=== PATIENT | male | born 1970 ===

== ENCOUNTER 2017-08-22 10:05 | Emergency (ER) | payer SELFPAY ==
[2017-08-22] MEDS ORDERED: Sodium Chloride 0.9% 500 ML IV ONE (11:10)
[2017-08-22] MEDS ORDERED: Dexamethasone 10 MG in Sodium Chloride 0.9% 50 ML IV ONE (11:12)
[2017-08-22] MEDS ORDERED: Sodium Chloride 0.9% 1,000 ML IV SCH (11:15)
--- NOTE | 2017-08-22 11:15 | ED PDOC ---
HPI: General Adult Time Seen by Provider: 08/22/17 11:10 Chief Complaint (Nursing): Fever Chief Complaint (Provider): sore throat History Per: Patient History/Exam Limitations: no limitations Onset/Duration Of Symptoms: Days (1) Have you had recent travel within the past 21 days to any of the following countries: [place], [place], [place] or [place]?: No Current Symptoms Are (Timing): Still Present Severity: Severe Location: generalized body/headache/sore throat Additional History Per: Patient Additional Complaint(s): pt p/w 1 day onset of generalized headache, + sore throat, lower body pain, + general weakness that worsened this morning; pt states Fever > 105 at home?; pt states no appetite, no drooling/voice changes, ? chills/sweats, no cp/sob/ palpitations, no abd pain, no n/v, no urinary/bowel changes, no fall/trauma/ sick contact, no travel; pt denied LOC, no neck pain, no light sensitivity, no rashes; no other complaints; pt is here for further eval PCP: hulbert Past Medical History Reviewed: Historical Data, Nursing Documentation, Vital Signs Vital Signs: Last Vital Signs Temp 98.1 F 08/22/17 10:11 Pulse 81 08/22/17 10:11 Resp 20 08/22/17 10:11 BP 127/67 08/22/17 10:11 Pulse Ox 98 08/22/17 11:14 - Surgical History Surgical History: Back Surgery - Family History Family History: States: Unknown Family Hx - Social History Current smoker - smoking cessation education provided: No Ex-Smoker (has not smoked in the last 12 months): No Alcohol: None Drugs: Denies - Immunization History Hx Tetanus Toxoid Vaccination: No - Home Medications Home Medications: Ambulatory Orders Medication Instructions Recorded Omeprazole 40 mg PO DAILY 01/07/17 Ranitidine HCl [Zantac] 150 mg PO BID #20 tablet 01/07/17 Naproxen 1 tab PO Q12 PRN #14 tab 03/20/17 Cyclobenzaprine [Flexeril] 10 mg PO Q8 PRN #15 tab 03/27/17 traMADol [Ultram] 50 mg PO TID PRN #15 tab 03/27/17 Amoxicillin/Clavulanate [Augmentin 1 tab PO BID #19 tab 08/22/17 875 MG-125 MG] Ibuprofen [Motrin] 600 mg PO QID PRN #30 tab 08/22/17 Ondansetron ODT [Zofran ODT] 4 mg PO TID PRN #10 odt 08/22/17 - Allergies Allergies/Adverse Reactions: Allergies Allergy/AdvReac Type Severity Reaction Status Date / Time No Known Allergies Allergy Verified 08/22/17 10:34 Review of Systems ROS Statement: Except As Marked, All Systems Reviewed And Found Negative Constitutional: Positive for: Fever, Chills, Sweats, Weakness, Malaise Eyes: Negative for: Pain, Vision Change ENT: Negative for: Ear Pain, Nose Congestion Cardiovascular: Negative for: Chest Pain Respiratory: Negative for: Cough, SOB with Exertion Gastrointestinal: Negative for: Nausea, Vomiting, Abdominal Pain Musculoskeletal: Negative for: Neck Pain Skin: Negative for: Rash Neurological: Positive for: Weakness, Headache Psych: Negative for: Anxiety, Depression, Psychosis, Suicidal ideation Physical Exam - Reviewed Nursing Documentation Reviewed: Yes Vital Signs Reviewed: Yes (elevated Temp) - Physical Exam Appears: Positive for: Well, Uncomfortable Head Exam: Positive for: ATRAUMATIC, NORMAL INSPECTION, NORMOCEPHALIC Skin: Positive for: Normal Color (cap refill ~ 1sec, no ulcerations, no petechiae, no rashes, no lesions), Dry Eye Exam: Positive for: Normal appearance, EOMI, PERRL, Other (no photophobia, sclera anicteric, no nytagmus) ENT: Positive for: TM Is/Are, Other (+ pharyngeal exudate noted, slightly enlarged tonsils, slightly erythematous; no drooling/stridor/dysphonia, uvula/ tongue are midline; intact dentitions, no fetid odor) Neck: Positive for: Normal (no step off, no nuchal rigidity, no meningeal signs , no midline tenderness), Supple. Negative for: Decreased ROM Cardiovascular/Chest: Positive for: Regular Rate, Rhythm. Negative for: Murmur Respiratory: Positive for: Normal Breath Sounds (CTA b/l, no w/r/r, no accessory muscle use noted, no tachypenia) Gastrointestinal/Abdominal: Positive for: Normal Exam, Other (well nourished male, no focal tenderness, no mcgregor's sign, no mcburney's point tenderness, no masses/rebound/guarding/rigidity; well nourished male) Back: Positive for: Normal Inspection. Negative for: L CVA Tenderness, R CVA Tenderness Extremity: Positive for: Normal ROM, Other (+ ambulatory, neurovasc intact b/l, strength 5/5 grossly intact in all limbs) Neurologic/Psych: Positive for: Alert, director index II-XII, Oriented - Laboratory Results Result Diagrams: 08/22/17 12:25 08/22/17 12:25 Interpretation Of Abn Labs: elevated WBCs - ECG O2 Sat by Pulse Oximetry: 98 - Radiology X-Ray: Read By Radiologist - Progress ED Course And Treament: HISTORY: fever, sore throat COMPARISON: No prior. TECHNIQUE: Chest PA and lateral FINDINGS: LUNGS: No active pulmonary disease. PLEURA: No significant pleural effusion identified. No pneumothorax apparent. CARDIOVASCULAR: Normal. OSSEOUS STRUCTURES: Minor multilevel degenerative spondylosis of the thoracic spine VISUALIZED UPPER ABDOMEN: Normal. OTHER FINDINGS: None. IMPRESSION: No active disease. 2:00pm - pt felt much improved pt states no more headache and throat pain is much improved pt tolerated po vital signs are stable/improved pt is made aware of his medical results pt is encouraged fluids pt will f/u as directed pt will be discharged home Re-evaluation Time: 14:00 Condition: Improved Medical Decision Making Medical Decision Making: Impression: sore throat, headache/body pain i have consider all the differential diagnosis regarding pt's chief medical complaints/clinical findings, including but are not limited to: sore throat, headache/body pain, lower back pain A/P: sore throat, headache, body pain, lower back pain - labs - iv - xray - observe - ua - supportive care Disposition - Clinical Impression Clinical Impression: Pharyngitis, Fever, Headache, Dehydration - Patient ED Disposition Is Patient to be Admitted: No Counseled Patient/Family Regarding: Studies Performed, Diagnosis, Need For Followup, Rx Given - Disposition Referrals: [facility] [Outside] Disposition: Routine/Home Disposition Time: 14:51 Condition: STABLE Additional Instructions: Make sure to see your doctor in 1-2 days DRINK PLENTY OF FLUIDS take your medications as prescribed RETURN TO ED IF worse pain, cant breath, persistent vomiting, high fever >101- 102 for hours, altered behavior, slurr speech, facial changes, focal weakness ( arm/leg or both), unable to urinate, heavy/persistent bleeding, passing out, chest pain, or other medical emergencies Prescriptions: Amoxicillin/Clavulanate [Augmentin 875 MG-125 MG] 1 tab PO BID #19 tab Ibuprofen [Motrin] 600 mg PO QID PRN #30 tab PRN Reason: Pain, Mild (1-3) Ondansetron ODT [Zofran ODT] 4 mg PO TID PRN #10 odt PRN Reason: Nausea/Vomiting Instructions: Sore Throat in Adults, Headache, Adult, Dehydration, Adult (DC), When to Worry About a Fever Forms: [facility] (Upper Sorbian), [facility] (English) Print Language: SAMI
--- NOTE | 2017-08-22 12:15 | RAD ---
HISTORY: fever, sore throat COMPARISON: No prior. TECHNIQUE: Chest PA and lateral FINDINGS: LUNGS: No active pulmonary disease. PLEURA: No significant pleural effusion identified. No pneumothorax apparent. CARDIOVASCULAR: Normal. OSSEOUS STRUCTURES: Minor multilevel degenerative spondylosis of the thoracic spine VISUALIZED UPPER ABDOMEN: Normal. OTHER FINDINGS: None. IMPRESSION: No active disease.
[2017-08-22 12:37] LABS: SQUAMOUS EPITHIAL < 1 /hpf (0-5); URINE BILIRUBIN NEGATIVE (NEGATIVE); URINE BLOOD NEGATIVE (NEGATIVE); URINE CLARITY CLEAR (Clear); URINE COLOR YELLOW (YELLOW); URINE GLUCOSE (UA) NEG (Normal); URINE LEUKOCYTE ESTERASE NEG Leu/uL (Negative); URINE PROTEIN NEGATIVE (NEGATIVE); URINE UROBILINOGEN 0.2-1.0 mg/dL (0.2-1.0)
[2017-08-22 12:45] LABS: BASO # 0.1 K/uL (0.0-0.2); BASO % 0.4 % (0.0-2.0); HEMOGLOBIN 14.8 g/dL (12.0-18.0); LYMPH % 5.9 % (20.0-40.0); MEAN CORPUSCULAR HEMOGLOBIN 28.3 pg (27.0-31.0); MEAN CORPUSCULAR HGB CONC 33.7 g/dL (33.0-37.0); MEAN PLATELET VOLUME 8.8 fl (7.2-11.7); MONO # 1.4 K/uL (0.0-0.8); MONO % 8.2 % (0.0-10.0); NEUT # 14.8 K/uL (1.8-7.0); NEUT % 85.5 % (50.0-75.0); NRBC % 0.1 % (0.0-0.0); PLATELET COUNT 179 K/uL (130-400); RBC 5.23 Mil/uL (4.40-5.90); RED CELL DISTRIBUTION WIDTH 13.7 % (11.5-14.5); WHITE BLOOD COUNT 17.3 K/uL (4.8-10.8)
[2017-08-22 13:10] LABS: ALB/GLOB RATIO 1.1 (1.0-2.1); ALBUMIN 4.5 g/dL (3.5-5.0)
[2017-08-22 13:12] LABS: ALT/SGPT 48 U/L (21-72); AST/SGOT 31 U/L (17-59); BLOOD UREA NITROGEN 14 mg/dl (9-20); CALCIUM 9.5 mg/dL (8.4-10.2); GFR AFRICAN-AMERICAN > 60; GFR NON-AFRICAN AMERICAN > 60
[2017-08-22] MEDS ORDERED: Amoxicillin-Clav 875-125 mg Tab PO ONE ×2 (13:45→15:27)
[2017-08-22 15:23] LABS: BANDS 1 % (0-2); BASOPHIL 1 % (0-2); LYMPHOCYTE 4 % (20-50); MONOCYTE 9 % (0-10); NEUTROPHIL 85 % (42-75); PLATELET ESTIMATE NORMAL (NORMAL); TOTAL CELLS COUNTED 100
[2017-08-22 15:31] VITALS: BP 120/77; PULSE 80; RESP 17; TEMP 97.9; O2SAT 97
== END 2017-08-22 15:37 | disposition home or self-care (01) ==
LOC: H.ER 10:05
DX: R50.9 Fever, unspecified (principal); J02.9 Acute pharyngitis, unspecified; R51 Headache; E86.0 Dehydration
CPT/HCPCS: 71046; 80053; 81003; 85025; 87070; 87430; 96361; 96374; 96375; 99285; J1100; J1885; J7040

== ENCOUNTER 2017-10-07 20:41 | Emergency (ER) | payer SELFPAY ==
[2017-10-07 21:10] VITALS: BP 146/87; PULSE 83; RESP 18; TEMP 98.3; O2SAT 98
--- NOTE | 2017-10-07 21:27 | ED PDOC ---
HPI: General Adult Time Seen by Provider: 10/07/17 21:24 Chief Complaint (Nursing): ENT Problem Chief Complaint (Provider): Hoarse throat and lower back pain History Per: Patient History/Exam Limitations: no limitations Onset/Duration Of Symptoms: Other (x1 week) Current Symptoms Are (Timing): Still Present Additional Complaint(s): 47 year old male presented to ED complaining that his throat has been hoarse and has had lower back pain. Patient has not taken medications. Denies fever, chills, and sore throat. PCP: none provided Past Medical History Reviewed: Historical Data, Nursing Documentation, Vital Signs Vital Signs: Last Vital Signs Temp 98.3 F 10/07/17 21:07 Pulse 83 10/07/17 21:07 Resp 18 10/07/17 21:07 BP 146/87 10/07/17 21:07 Pulse Ox 98 10/07/17 21:39 - Medical History PMH: No Chronic Diseases - Surgical History Surgical History: Back Surgery - Family History Family History: States: Unknown Family Hx - Immunization History Hx Tetanus Toxoid Vaccination: No - Home Medications Home Medications: Ambulatory Orders Medication Instructions Recorded Omeprazole 40 mg PO DAILY 01/07/17 Ranitidine HCl [Zantac] 150 mg PO BID #20 tablet 01/07/17 Naproxen 1 tab PO Q12 PRN #14 tab 03/20/17 Cyclobenzaprine [Flexeril] 10 mg PO Q8 PRN #15 tab 03/27/17 traMADol [Ultram] 50 mg PO TID PRN #15 tab 03/27/17 Amoxicillin/Clavulanate [Augmentin 1 tab PO BID #19 tab 08/22/17 875 MG-125 MG] Ibuprofen [Motrin] 600 mg PO QID PRN #30 tab 08/22/17 Ondansetron ODT [Zofran ODT] 4 mg PO TID PRN #10 odt 08/22/17 Naproxen 1 tab PO Q12 PRN #14 tab 10/07/17 - Allergies Allergies/Adverse Reactions: Allergies Allergy/AdvReac Type Severity Reaction Status Date / Time No Known Allergies Allergy Verified 08/22/17 10:34 Review of Systems ROS Statement: Except As Marked, All Systems Reviewed And Found Negative ENT: Positive for: Throat Pain (hoarse throat) Musculoskeletal: Positive for: Back Pain (lower) Physical Exam - Reviewed Nursing Documentation Reviewed: Yes Vital Signs Reviewed: Yes - Physical Exam Appears: Positive for: Non-toxic, No Acute Distress Head Exam: Positive for: ATRAUMATIC, NORMAL INSPECTION, NORMOCEPHALIC Skin: Positive for: Normal Color, Warm, Dry Eye Exam: Positive for: Normal appearance ENT: Positive for: Normal ENT Inspection. Negative for: Other (throat erythema or exudate) Neck: Positive for: Normal, Painless ROM Cardiovascular/Chest: Positive for: Regular Rate, Rhythm. Negative for: Murmur Respiratory: Positive for: Normal Breath Sounds. Negative for: Wheezing, Respiratory Distress Gastrointestinal/Abdominal: Positive for: Normal Exam, Soft. Negative for: Tenderness Back: Positive for: Other (Parathoracic lumbar region tenderness with palpation) . Negative for: Vertebral Tenderness (focal or spinal tenderness) Extremity: Positive for: Normal ROM. Negative for: Pedal Edema Neurologic/Psych: Positive for: Alert, Oriented - ECG O2 Sat by Pulse Oximetry: 98 (RA) Pulse Ox Interpretation: Normal Medical Decision Making Medical Decision Making: Initial Impression: lower back pain and throat hoarseness Initial Plan: Patient is stable for discharge and is instructed to follow up with ENT specialist. Scribe Attestation: Documented by Federico Carlos acting as a scribe for Caryl ANG Provider Scribe Attestation: All medical record entries made by the Scribe were at my direction and personally dictated by me. I have reviewed the chart and agree that the record accurately reflects my personal performance of the history, physical exam, medical decision making, and the department course for this patient. I have also personally directed, reviewed, and agree with the discharge instructions and disposition. Disposition - Clinical Impression Clinical Impression: Laryngitis, Muscle strain - Patient ED Disposition Is Patient to be Admitted: No - Disposition Referrals: Cesario Gannon MD [Staff Provider] - Disposition: Routine/Home Disposition Time: 21:42 Condition: FAIR Prescriptions: Naproxen 1 tab PO Q12 PRN #14 tab PRN Reason: Pain, Moderate (4-7) Instructions: Muscle Strain, Laryngitis (DC) Forms: [facility] (Maltese) Print Language: BHUTANESE
== END 2017-10-07 21:42 | disposition home or self-care (01) ==
LOC: H.ER 20:41
DX: J04.0 Acute laryngitis (principal)

== ENCOUNTER 2018-03-19 15:31 | Emergency (ER) | payer SELFPAY ==
[2018-03-19 15:37] VITALS: O2SAT 98
[2018-03-19] MEDS ORDERED: Iohexol 240 (50 ml) PO ONE (15:55)
[2018-03-19] MEDS ORDERED: Iohexol 240 (50 ml) ONE (16:10)
[2018-03-19 16:17] LABS: BASO % 0.8 % (0.0-2.0); EOS # 0.1 K/uL (0.0-0.7); EOS % 1.2 % (0.0-4.0); HEMOGLOBIN 13.3 g/dL (12.0-18.0); LYMPH # 1.6 K/uL (1.0-4.3); LYMPH % 33.8 % (20.0-40.0); MEAN CELL VOLUME 85.9 fl (80.0-94.0); MEAN CORPUSCULAR HEMOGLOBIN 36.2 pg (27.0-31.0); MEAN CORPUSCULAR HGB CONC 42.1 g/dL (33.0-37.0); MONO # 0.6 K/uL (0.0-0.8); MONO % 12.2 % (0.0-10.0); NEUT # 2.4 K/uL (1.8-7.0); RBC 3.68 Mil/uL (4.40-5.90); RED CELL DISTRIBUTION WIDTH 14.4 % (11.5-14.5); WHITE BLOOD COUNT 4.6 K/uL (4.8-10.8)
--- NOTE | 2018-03-19 16:22 | ED PDOC ---
HPI: Abdomen Time Seen by Provider: 03/19/18 15:40 Chief Complaint (Nursing): Abdominal Pain Chief Complaint (Provider): Abdominal Pain History Per: Patient History/Exam Limitations: no limitations Onset/Duration Of Symptoms: Days (x3) Current Symptoms Are (Timing): Intermittent Episodes Additional Complaint(s): Bogdan Chavez, a 48 year old male, presents to the ED complaining of abdominal pain onset for x3 days. Patient reports a slow onset of pain, but has gradually gotten worse and localized to right lower quadrant. Patient states pain was initially associated with non bilious non bloody vomiting, but is now associated with 3 episodes of watery non bloody diarrhea earlier today and decreased appetite. The patient denies fever, chills, testicular pain or back pain. He denies taking medications for pain. PCP: Dr. Guzman Past Medical History Reviewed: Historical Data, Nursing Documentation, Vital Signs Vital Signs: Last Vital Signs Temp 97.6 F 03/19/18 15:35 Pulse 77 03/19/18 15:35 Resp 16 03/19/18 15:35 BP 119/78 03/19/18 15:35 Pulse Ox 98 03/19/18 15:35 - Medical History PMH: No Chronic Diseases - Surgical History Surgical History: Back Surgery, Hernia Repair Other surgeries: abdominal exploratory laparotomy, cyst on back - Family History Family History: States: No Known Family Hx - Social History Current smoker - smoking cessation education provided: No Alcohol: Social Drugs: Denies - Immunization History Hx Tetanus Toxoid Vaccination: No - Home Medications Home Medications: Ambulatory Orders Medication Instructions Recorded RX: Omeprazole 40 mg PO DAILY 01/07/17 Ranitidine HCl [Zantac] 150 mg PO BID #20 tablet 01/07/17 RX: Naproxen 1 tab PO Q12 PRN #14 tab 03/20/17 RX: Cyclobenzaprine [Flexeril] 10 mg PO Q8 PRN #15 tab 03/27/17 RX: traMADol [Ultram] 50 mg PO TID PRN #15 tab 03/27/17 Amoxicillin/Clavulanate [Augmentin 1 tab PO BID #19 tab 08/22/17 875 MG-125 MG] Ibuprofen [Motrin] 600 mg PO QID PRN #30 tab 08/22/17 Ondansetron ODT [Zofran ODT] 4 mg PO TID PRN #10 odt 08/22/17 RX: Naproxen 1 tab PO Q12 PRN #14 tab 10/07/17 Ondansetron ODT [Zofran ODT] 1 odt PO Q6 PRN #20 odt 03/19/18 RX: Ibuprofen [Motrin Tab] 600 mg PO Q8 PRN #30 tab 03/19/18 Saccharomyces Boulardi [Florastor] 500 mg PO BID #28 cap 03/19/18 - Allergies Allergies/Adverse Reactions: Allergies Allergy/AdvReac Type Severity Reaction Status Date / Time No Known Allergies Allergy Verified 03/19/18 15:34 Review of Systems ROS Statement: Except As Marked, All Systems Reviewed And Found Negative Constitutional: Negative for: Fever, Chills Gastrointestinal: Positive for: Vomiting (non bilus non bloody), Abdominal Pain (RLQ), Diarrhea (watery, non bloody) Genitourinary Male: Negative for: Dysuria, Frequency, Hematuria, Scrotal Pain (testicular) Musculoskeletal: Negative for: Back Pain Physical Exam - Reviewed Nursing Documentation Reviewed: Yes Vital Signs Reviewed: Yes - Physical Exam Appears: Positive for: Non-toxic, In Acute Distress (mild painful distress) Head Exam: Positive for: ATRAUMATIC, NORMAL INSPECTION, NORMOCEPHALIC Skin: Positive for: Normal Color, Warm, Dry Eye Exam: Positive for: Normal appearance, EOMI, PERRL Neck: Positive for: Normal, Painless ROM Cardiovascular/Chest: Positive for: Regular Rate, Rhythm. Negative for: Murmur Respiratory: Positive for: Normal Breath Sounds. Negative for: Respiratory Distress Gastrointestinal/Abdominal: Positive for: Soft, Tenderness (RLQ with positive mcburney's point tenderness), Distended. Negative for: Mass, Guarding, Rebound, Other (Rovsing's sign, Obturators sign, Psoas sign, ) Back: Positive for: Normal Inspection Extremity: Positive for: Normal ROM. Negative for: Deformity, Swelling Neurologic/Psych: Positive for: Alert, Oriented - Laboratory Results Result Diagrams: 03/19/18 16:00 03/19/18 16:00 - ECG O2 Sat by Pulse Oximetry: 98 (RA) Pulse Ox Interpretation: Normal Medical Decision Making Medical Decision Making: Time 15:40 Initial Impression: abdominal pain. Differential diagnosis includes but not limited to appendicitis, mesenteric adenitis, colitis, enteritis. Initial Plan: --CT ABD/Pelvis --Labs --Ominpaque 240 50 mL PO --UA --Revaluation 16:30 UA results were negative 18:37 --CT ABD/Pelvis FINDINGS: LOWER THORAX: Cardiomegaly. No focal consolidation or pleural effusion. LIVER: Hepatic steatosis. No gross lesion or ductal dilatation. GALLBLADDER AND BILE DUCTS: Unremarkable. PANCREAS: Unremarkable. No gross lesion or ductal dilatation. SPLEEN: Unremarkable. ADRENALS: Bilateral adrenal nodular thickening. KIDNEYS AND URETERS: Unremarkable. No hydronephrosis. No solid mass. VASCULATURE: Unremarkable. No aortic aneurysm. No aortic atherosclerotic calcification or mural plaque present. BOWEL: Cluster of small-bowel loops in mid to right lower quadrant with wall thickening and mild stranding thickening. APPENDIX: Normal appendix. PERITONEUM: Unremarkable. No free fluid. No free air. LYMPH NODES: Unremarkable. No enlarged lymph nodes. BLADDER: Unremarkable. REPRODUCTIVE: Unremarkable. BONES: No acute fracture. OTHER FINDINGS: None. IMPRESSION: Infectious/inflammatory enteritis. DW pt findings and plan of care. Stable for dc with fu pmd. ----- Scribe Attestation: Documented by Tyrell Tavera, acting as a scribe for Eva Meraz MD. Provider Scribe Attestation: All medical record entries made by the Scribe were at my direction and personally dictated by me. I have reviewed the chart and agree that the record accurately reflects my personal performance of the history, physical exam, medical decision making, and the department course for this patient. I have also personally directed, reviewed, and agree with the discharge instructions and disposition. Disposition - Clinical Impression Clinical Impression: Enteritis - Disposition Referrals: Wale Rodriguez MD [Medical Doctor] - 03/20/18 Disposition: Routine/Home Disposition Time: 18:40 Condition: STABLE Prescriptions: RX: Ibuprofen [Motrin Tab] 600 mg PO Q8 PRN #30 tab PRN Reason: Pain, Moderate (4-7) Ondansetron ODT [Zofran ODT] 1 odt PO Q6 PRN #20 odt PRN Reason: Nausea/Vomiting Saccharomyces Boulardi [Florastor] 500 mg PO BID #28 cap Instructions: Diarrhea in Adolescents and Adults Forms: [facility] ED School/Work Excuse Print Language: GERMAN
[2018-03-19 16:30] LABS: ALB/GLOB RATIO 1.1 (1.0-2.1); ALBUMIN 4.4 g/dL (3.5-5.0); ALT/SGPT 42 U/L (21-72); AST/SGOT 32 U/L (17-59); BLOOD UREA NITROGEN 18 mg/dl (9-20); CALCIUM 9.1 mg/dL (8.4-10.2); GFR NON-AFRICAN AMERICAN > 60; LIPASE 80 U/L (23-300)
[2018-03-19 16:36] LABS: URINE BILIRUBIN NEGATIVE (NEGATIVE); URINE BLOOD NEGATIVE (NEGATIVE); URINE CLARITY CLEAR (Clear); URINE COLOR YELLOW (YELLOW); URINE GLUCOSE (UA) NEG (Normal); URINE LEUKOCYTE ESTERASE NEG Leu/uL (Negative); URINE PROTEIN NEGATIVE (NEGATIVE); URINE UROBILINOGEN 0.2-1.0 mg/dL (0.2-1.0)
[2018-03-19 16:47] LABS: PROTHROMBIN TIME 11.5 Seconds (9.8-13.1)
[2018-03-19 16:50] LABS: PARTIAL THROMBOPLASTIN TIME 40.6 Seconds (25.6-37.1)
[2018-03-19] MEDS ORDERED: Sodium Chloride 0.9% 50 ML IV ONE (17:40)
[2018-03-19] MEDS ORDERED: Iohexol 300 100 ML IJ ONE (17:40)
--- NOTE | 2018-03-19 18:40 | CT ---
Date of service: 03/19/2018 PROCEDURE: CT Abdomen and Pelvis with contrast HISTORY: RLQ pain h/o ex lap (20 yrs ago) COMPARISON: None. TECHNIQUE: Contrast dose: 95 mL Omnipaque 300 Radiation dose: Total exam DLP = 758.04 mGy-cm. This CT exam was performed using one or more of the following dose reduction techniques: Automated exposure control, adjustment of the mA and/or kV according to patient size, and/or use of iterative reconstruction technique. FINDINGS: LOWER THORAX: Cardiomegaly. No focal consolidation or pleural effusion. LIVER: Hepatic steatosis. No gross lesion or ductal dilatation. GALLBLADDER AND BILE DUCTS: Unremarkable. PANCREAS: Unremarkable. No gross lesion or ductal dilatation. SPLEEN: Unremarkable. ADRENALS: Bilateral adrenal nodular thickening. KIDNEYS AND URETERS: Unremarkable. No hydronephrosis. No solid mass. VASCULATURE: Unremarkable. No aortic aneurysm. No aortic atherosclerotic calcification or mural plaque present. BOWEL: Cluster of small-bowel loops in mid to right lower quadrant with wall thickening and mild stranding thickening. APPENDIX: Normal appendix. PERITONEUM: Unremarkable. No free fluid. No free air. LYMPH NODES: Unremarkable. No enlarged lymph nodes. BLADDER: Unremarkable. REPRODUCTIVE: Unremarkable. BONES: No acute fracture. OTHER FINDINGS: None. IMPRESSION: Infectious/inflammatory enteritis.
[2018-03-19 19:21] VITALS: BP 120/80; PULSE 70; RESP 20; TEMP 98
== END 2018-03-19 19:20 | disposition home or self-care (01) ==
LOC: H.ER 15:31
DX: K52.9 Noninfective gastroenteritis and colitis, unspecified (principal)
CPT/HCPCS: 74177; 80053; 81003; 83690; 85025; 85610; 85730; 99284; Q9966; Q9967

== ENCOUNTER 2018-07-06 10:18 | Emergency (ER) | payer BC, SELFPAY ==
[2018-07-06 10:33] VITALS: BP 124/74; PULSE 79; RESP 18; TEMP 98.2; O2SAT 97
[2018-07-06] MEDS ORDERED: Sodium Chloride 0.9% 1,000 ML IV STA (11:21)
--- NOTE | 2018-07-06 12:07 | ED PDOC ---
HPI: Abdomen Time Seen by Provider: 07/06/18 10:38 Chief Complaint (Nursing): Abdominal Pain Chief Complaint (Provider): Abdominal Pain History Per: Patient History/Exam Limitations: no limitations Onset/Duration Of Symptoms: Hrs Current Symptoms Are (Timing): Still Present Additional Complaint(s): Patient is a 48 y/o male with a PMHx of hypercholesterolemia who presents to the ED for evaluation of right lower quadrant pain since 2:00 this morning. Patient states the pain comes in waves and has been getting worse since. Patient reports the pain has been associated with one episode of vomiting at around 5:00 this morning. Patient admits to a decrease in appetite and mild constipation. Patient denies diarrhea, bowel movements today, fever, chills, and bloody stool. Of note, patient had a similar episode and symptoms back in February and based off a CT scan and labs was told it was inflammation. Patient then followed up with PCP to get more imaging done and was told he had a fatty liver. PCP: Dr. Rodriguez Past Medical History Reviewed: Historical Data, Nursing Documentation, Vital Signs Vital Signs: Last Vital Signs Temp 98.2 F 07/06/18 10:29 Pulse 79 07/06/18 10:29 Resp 18 07/06/18 10:29 BP 124/74 07/06/18 10:29 Pulse Ox 97 07/06/18 10:29 - Medical History PMH: Hypercholesterolemia - Surgical History Surgical History: Back Surgery, Hernia Repair Other surgeries: Abdominal Surgery after aciddent - Family History Family History: States: Unknown Family Hx - Social History Current smoker - smoking cessation education provided: No Alcohol: Social Drugs: Denies - Immunization History Hx Tetanus Toxoid Vaccination: No - Home Medications Home Medications: Ambulatory Orders Medication Instructions Recorded Omeprazole 40 mg PO DAILY 01/07/17 Ranitidine HCl [Zantac] 150 mg PO BID #20 tablet 01/07/17 Naproxen 1 tab PO Q12 PRN #14 tab 03/20/17 Cyclobenzaprine [Flexeril] 10 mg PO Q8 PRN #15 tab 03/27/17 traMADol [Ultram] 50 mg PO TID PRN #15 tab 03/27/17 Amoxicillin/Clavulanate [Augmentin 1 tab PO BID #19 tab 08/22/17 875 MG-125 MG] Ibuprofen [Motrin] 600 mg PO QID PRN #30 tab 08/22/17 Ondansetron ODT [Zofran ODT] 4 mg PO TID PRN #10 odt 08/22/17 Naproxen 1 tab PO Q12 PRN #14 tab 10/07/17 Ibuprofen [Motrin Tab] 600 mg PO Q8 PRN #30 tab 03/19/18 Ondansetron ODT [Zofran ODT] 1 odt PO Q6 PRN #20 odt 03/19/18 Saccharomyces Boulardi [Florastor] 500 mg PO BID #28 cap 03/19/18 Ketorolac Tromethamine [Toradol] 10 mg PO Q8 PRN #30 tab 07/06/18 Ondansetron ODT [Zofran ODT] 1 odt PO Q6 PRN #20 odt 07/06/18 - Allergies Allergies/Adverse Reactions: Allergies Allergy/AdvReac Type Severity Reaction Status Date / Time No Known Allergies Allergy Verified 03/19/18 15:34 Review of Systems ROS Statement: Except As Marked, All Systems Reviewed And Found Negative (as per HPI) Constitutional: Positive for: Other (decreased appetite). Negative for: Fever, Chills Gastrointestinal: Positive for: Vomiting, Abdominal Pain (right lower quadrant), Constipation (mild). Negative for: Diarrhea, Hematochezia Physical Exam - Reviewed Nursing Documentation Reviewed: Yes Vital Signs Reviewed: Yes - Physical Exam Appears: Positive for: No Acute Distress Head Exam: Positive for: ATRAUMATIC, NORMOCEPHALIC Skin: Positive for: Warm, Dry Eye Exam: Positive for: EOMI, PERRL ENT: Negative for: Pharyngeal Erythema, Tonsillar Exudate Neck: Positive for: Painless ROM, Supple Cardiovascular/Chest: Positive for: Regular Rate, Rhythm, Chest Non Tender. Negative for: Murmur Respiratory: Positive for: Normal Breath Sounds. Negative for: Wheezing Gastrointestinal/Abdominal: Positive for: Tenderness (right lower quadrant), Other (Positive McBurney's Sign). Negative for: Mass, Distended, Guarding, Rebound Back: Positive for: Normal Inspection. Negative for: Muscle Spasm Extremity: Positive for: Normal ROM. Negative for: Deformity Lymphatic: Negative for: Adenopathy Neurologic/Psych: Positive for: Alert. Negative for: Motor/Sensory Deficits - Laboratory Results Result Diagrams: 07/06/18 11:55 07/06/18 11:55 - ECG O2 Sat by Pulse Oximetry: 97 (RA) Pulse Ox Interpretation: Normal Medical Decision Making Medical Decision Making: Time: 112 Impression: Right lower quadrant pain -Reviewed previous chart: CT Abd & Pelvis - Cluster of small-bowel loops in mid to right lower quadrant with wall thickening and mild stranding thickening. Normal appendix -CT scan demonstrated inflammatory appendicitis as a possibility, however, symptoms are almost exactly as previous presentation. -Will check labs for lekocytosis as well as signs of hepatitis or cholecystitis. Medicate for possible enteritis. -Reevaluate patient. Will consider CT scan after reevaluation. Plan: Alcohol Serum CMP Lipase CBC IV Fluids Toradol 15 mg IVP Zofran 4 mg IVP Urine Culture IV Insertion UA 1pm On reevaluation pt feeling better. Labs with no clinically significant abnormalities. ABdominal exam benign. STable for discharge. Advised GI followup. ------- Scribe Attestation: Documented by Chong Angelo, acting as a scribe for Eva Meraz MD. Provider Scribe Attestation: All medical record entries made by the Scribe were at my direction and personally dictated by me. I have reviewed the chart and agree that the record accurately reflects my personal performance of the history, physical exam, medical decision making, and the department course for this patient. I have also personally directed, reviewed, and agree with the discharge instructions and disposition. Disposition - Clinical Impression Clinical Impression: Abdominal pain - Disposition Referrals: Merritt Stone MD [Staff Provider] - 07/07/18 ([facility]) Disposition: Routine/Home Disposition Time: 13:00 Condition: IMPROVED Additional Instructions: VISITA MERIDA DOCTOR O GASTROENTEROLOGO A CHEQAR DE NUEVO Prescriptions: Ketorolac Tromethamine [Toradol] 10 mg PO Q8 PRN #30 tab PRN Reason: PAIN Ondansetron ODT [Zofran ODT] 1 odt PO Q6 PRN #20 odt PRN Reason: Nausea/Vomiting Instructions: Acute Abdomen (Belly Pain), Adult (DC) Print Language: BHUTANESE
[2018-07-06 12:14] LABS: BASO % 0.3 % (0.0-2.0); HEMOGLOBIN 15.3 g/dL (12.0-18.0); LYMPH # 0.6 K/uL (1.0-4.3); LYMPH % 6.4 % (20.0-40.0); MEAN CELL VOLUME 83.6 fl (80.0-94.0); MEAN CORPUSCULAR HGB CONC 33.5 g/dL (33.0-37.0); MEAN PLATELET VOLUME 9.1 fl (7.2-11.7); MONO # 0.3 K/uL (0.0-0.8); MONO % 3.6 % (0.0-10.0); NEUT # 8.5 K/uL (1.8-7.0); NEUT % 89.7 % (50.0-75.0); NRBC % 0.1 % (0.0-0.0); PLATELET COUNT 225 K/uL (130-400); RBC 5.46 Mil/uL (4.40-5.90); RED CELL DISTRIBUTION WIDTH 14.4 % (11.5-14.5); WHITE BLOOD COUNT 9.5 K/uL (4.8-10.8)
[2018-07-06 12:17] LABS: URINE BILIRUBIN NEGATIVE (NEGATIVE); URINE BLOOD NEGATIVE (NEGATIVE); URINE CLARITY CLEAR (Clear); URINE COLOR YELLOW (YELLOW); URINE GLUCOSE (UA) NEG (NEGATIVE); URINE LEUKOCYTE ESTERASE NEG Leu/uL (Negative); URINE PROTEIN 30 mg/dL (NEGATIVE); URINE UROBILINOGEN 0.2-1.0 mg/dL (0.2-1.0)
[2018-07-06 12:31] LABS: SQUAMOUS EPITHIAL 1 /hpf (0-5); URINE BACTERIA OCC (<OCC)
[2018-07-06 12:33] LABS: ALB/GLOB RATIO 1.2 (1.0-2.1); ALBUMIN 4.9 g/dL (3.5-5.0); ALT/SGPT 41 U/L (21-72); AST/SGOT 34 U/L (17-59); BLOOD UREA NITROGEN 15 mg/dl (9-20); CALCIUM 9.9 mg/dL (8.4-10.2); GFR NON-AFRICAN AMERICAN > 60; LIPASE 74 U/L (23-300)
[2018-07-06 14:36] LABS: BANDS 1 % (0-2); LYMPHOCYTE 9 % (20-50); MONOCYTE 5 % (0-10); NEUTROPHIL 85 % (42-75); PLATELET ESTIMATE NORMAL (NORMAL); TOTAL CELLS COUNTED 100
== END 2018-07-06 13:56 | disposition home or self-care (01) ==
LOC: SUPCPDRO 10:18 → H.ER 10:18
DX: R10.31 Right lower quadrant pain (principal); E78.00 Pure hypercholesterolemia, unspecified
CPT/HCPCS: 80053; 81003; 83690; 85025; 87086; 96374; 96375; 99283; G0480; J1885; J2405; J7030

== ENCOUNTER 2018-08-25 09:05 | Day surgery (SDC) | payer BC ==
[2018-08-25 10:00] VITALS: BMI 29.5
[2018-08-25] MEDS ORDERED: Lactated Ringer's 500 ML IV ONE (10:00)
[2018-08-25 10:19] VITALS: TEMP 96.5
[2018-08-25] MEDS ORDERED: Propofol 10 mg/ml Inj (20 ML) ONE (11:31)
[2018-08-25 12:19] VITALS: BP 112/66; PULSE 69; RESP 13; O2SAT 99
== END 2018-08-25 12:45 | disposition home or self-care (01) ==
LOC: H.ENDO 09:05
PROVIDERS: ATTEND Internal Medicine Gastroenterology
DX: K64.8 Other hemorrhoids (principal); M10.9 Gout, unspecified; R10.31 Right lower quadrant pain
CPT/HCPCS: 45378; J2001; J2704; J7120